=== PATIENT | male | born 1990 | race Caucasian/White ===

== ENCOUNTER 2024-11-23 13:17 | Emergency (ER) | payer OTHER ==
[2024-11-23] MEDS ORDERED: Sodium Chloride 0.9% 10 ML Syringe FLUSH PRN (13:23)
[2024-11-23 13:37] LABS: BASOPHILS ABSOLUTE AUTO 0.0 K/mm3 (0.0-0.2); BASOPHILS PERCENT AUTO 0.4 % (0.0-1.0); EOSINOPHILS ABSOLUTE AUTO 0.0 K/mm3 (0.0-0.4); EOSINOPHILS PERCENT AUTO 0.4 % (0.0-6.0); IMMATURE GRAN ABSOLUTE AUTO 0.02 K/mm3 (0.00-0.05); IMMATURE GRAN PERCENT AUTO 0.2 % (0.0-0.4); LYMPHOCYTES ABSOLUTE AUTO 2.5 K/mm3 (1.0-4.8); LYMPHOCYTES PERCENT AUTO 30.4 % (24.0-44.0); MEAN PLATELET VOLUME 10.1 fl (9.4-12.4); MONOCYTES ABSOLUTE AUTO 0.7 K/mm3 (0.0-0.8); MONOCYTES PERCENT AUTO 8.4 % (0.0-8.0); NEUTROPHILS ABSOLUTE AUTO 4.9 K/mm3 (1.8-7.7); NEUTROPHILS PERCENT AUTO 60.2 % (41.0-71.0); NRBC ABSOLUTE 0.00 (0.00-0.02); NRBC PERCENT 0.0 % (0.0-0.2); PLATELET COUNT,PLT 308 K/mm3 (150-400); RED BLOOD CELL COUNT 4.96 M/mm3 (4.52-5.90); WHITE BLOOD CELL COUNT,WBC 8.12 K/mm3 (3.9-11.3)
[2024-11-23 14:03] LABS: A/G RATIO 1.5 (1-2); ALANINE AMINOTRANSFERASE,ALT 26 U/L (16-63); ASPARTATE AMNIOTRANSFERASE,AST 19 U/L (15-37); BILIRUBIN TOTAL 0.9 mg/dL (0.2-1.0); BLOOD UREA NITROGEN,BUN 10 mg/dL (7-18); CARBON DIOXIDE,CO2 25 mEq/L (21-32); CHLORIDE,CL 101 mEq/L (98-107); CREATININE 1.0 mg/dL (0.7-1.3); EST CRCL DRUG DOSING (CG) 119.07 mL/min; ESTIMATED GFR 101 mL/min (>60); GLUCOSE RANDOM 111 mg/dL (70-99); POTASSIUM,K 3.2 mEq/L (3.5-5.1); PROTEIN TOTAL,TP 7.8 g/dl (6.4-8.2); SODIUM,NA 136 mEq/L (136-145)
[2024-11-23 14:04] LABS: TROPONIN I HIGH SENSITIVITY < 4 pg/mL (<=76)
[2024-11-23 14:20] LABS: APPEARANCE,URINE CLEAR (Clear); GLUCOSE,URINE NEGATIVE (Negative); OCCULT BLOOD,URINE NEGATIVE (Negative)
[2024-11-23] MEDS: Potassium Chloride 20 MEQ Tab.ER PO ONE (14:36)
[2024-11-23 14:44] LABS: BUPRENORPHINE SCREEN,URINE NEGATIVE (CUTOFF=10); METHADONE SCREEN, URINE NEGATIVE (CUT0FF=200); METHAMPHETAMINES SCREEN, URINE NEGATIVE (CUTOFF=500); OXYCODONE SCREEN,URINE NEGATIVE (CUT0FF=100); THC SCREEN,URINE 20 NG/ML NEGATIVE (CUTOFF=50)
[2024-11-23 14:55] LABS: AMPHETAMINES SCREEN, URINE NEGATIVE (CUTOFF=500)
== END 2024-11-23 15:15 | disposition home or self-care (01) ==
LOC: JD.ED 13:17
DX: R07.89 Other chest pain (principal)
CPT/HCPCS: 36415; 71045; 80053; 80306; 81003; 83880; 84484; 85025; 93005; 96360; 99285; A9270; J7030

== ENCOUNTER 2024-11-25 07:06 | Emergency (ER) | payer OTHER ==
[2024-11-25 07:49] LABS: APPEARANCE,URINE CLEAR (Clear); GLUCOSE,URINE NEGATIVE (Negative); OCCULT BLOOD,URINE NEGATIVE (Negative)
[2024-11-25] MEDS: Iopamidol 612 MG/ML 100 ML Bottle IVPUSH ONE (07:53)
[2024-11-25] MEDS: Sodium Chloride 0.9% 10 ML Syringe FLUSH ONE (07:53)
[2024-11-25] MEDS: Sodium Chloride 0.9% 10 ML Syringe FLUSH PRN (08:04)
[2024-11-25 08:17] LABS: SQUAMOUS EPITHELIAL CELLS,UR 0-5 /hpf (0-5)
[2024-11-25 08:20] LABS: BASOPHILS ABSOLUTE AUTO 0.0 K/mm3 (0.0-0.2); BASOPHILS PERCENT AUTO 0.2 % (0.0-1.0); EOSINOPHILS ABSOLUTE AUTO 0.1 K/mm3 (0.0-0.4); EOSINOPHILS PERCENT AUTO 0.7 % (0.0-6.0); IMMATURE GRAN ABSOLUTE AUTO 0.03 K/mm3 (0.00-0.05); IMMATURE GRAN PERCENT AUTO 0.4 % (0.0-0.4); LYMPHOCYTES ABSOLUTE AUTO 2.3 K/mm3 (1.0-4.8); LYMPHOCYTES PERCENT AUTO 28.2 % (24.0-44.0); MEAN PLATELET VOLUME 10.7 fl (9.4-12.4); MONOCYTES ABSOLUTE AUTO 0.7 K/mm3 (0.0-0.8); MONOCYTES PERCENT AUTO 8.0 % (0.0-8.0); NEUTROPHILS ABSOLUTE AUTO 5.1 K/mm3 (1.8-7.7); NEUTROPHILS PERCENT AUTO 62.5 % (41.0-71.0); NRBC ABSOLUTE 0.00 (0.00-0.02); NRBC PERCENT 0.0 % (0.0-0.2); PLATELET COUNT,PLT 246 K/mm3 (150-400); RED BLOOD CELL COUNT 4.21 M/mm3 (4.52-5.90); WHITE BLOOD CELL COUNT,WBC 8.22 K/mm3 (3.9-11.3)
[2024-11-25 08:35] LABS: A/G RATIO 1.4 (1-2); ALANINE AMINOTRANSFERASE,ALT 21 U/L (16-63); ASPARTATE AMNIOTRANSFERASE,AST 12 U/L (15-37); BILIRUBIN TOTAL 0.3 mg/dL (0.2-1.0); BLOOD UREA NITROGEN,BUN 14 mg/dL (7-18); CARBON DIOXIDE,CO2 26 mEq/L (21-32); CHLORIDE,CL 105 mEq/L (98-107); CREATININE 0.9 mg/dL (0.7-1.3); EST CRCL DRUG DOSING (CG) 132.30 mL/min; ESTIMATED GFR 114 mL/min (>60); GLUCOSE RANDOM 102 mg/dL (70-99); POTASSIUM,K 3.8 mEq/L (3.5-5.1); PROTEIN TOTAL,TP 6.3 g/dl (6.4-8.2); SODIUM,NA 138 mEq/L (136-145)
[2024-11-25 08:38] LABS: TROPONIN I HIGH SENSITIVITY < 4 pg/mL (<=76)
== END 2024-11-25 09:35 | disposition home or self-care (01) ==
LOC: JD.ED 07:06
DX: R07.89 Other chest pain (principal); R10.32 Left lower quadrant pain; R25.1 Tremor, unspecified; F17.210 Nicotine dependence, cigarettes, uncomplicated; Z86.16 Personal history of COVID-19
CPT/HCPCS: 36415; 71046; 74177; 80053; 81001; 83690; 83735; 84484; 85025; 86140; 93005; 99285; Q9967